=== PATIENT | female | born 1960 | race Caucasian/White ===

== ENCOUNTER 2025-09-06 09:27 | Outpatient (CLI) | payer BC ==
[2025-09-06 10:27] LABS: #Basophils 0.07 10x3/uL (0.0-0.2); #Eosinophils 0.15 10x3/uL (0.0-0.7); #Monocytes 0.55 10x3/uL (0.11-0.59); #Neutrophils 4.07 10x3/uL (1.40-6.50); %Basophils 1.0 % (0.0-1.0); %Eosinophils 2.2 % (0.0-10.0); %Lymphocytes 29.1 % (21.0-51.0); %Monocytes 8.0 % (0.0-10.0); %Neutrophils 59.4 % (42.0-75.0); Hematocrit 42.9 % (36.0-47.0); Hemoglobin 13.8 g/dL (12.0-16.0); Mean Corpuscular Hemoglobin 28.3 pg (27.0-31.0); Mean Corpuscular Volume 88.1 fL (78.0-98.0); Platelet Count 320 10x3/uL (130-400); Red Blood Cell (RBC) Count 4.87 mill/uL (4.20-5.40); White Blood Cell (WBC) Count 6.85 10x3/uL (4.8-10.8)
[2025-09-06 10:41] LABS: INR-International Normal Ratio 1.0; Prothrombin Time 12.8 sec (12.0-14.7)
[2025-09-06 10:53] LABS: ALT (SGPT) 14 U/L (Less than 34); AST (SGOT) 20 U/L (11-34); Albumin 4.0 g/dL (3.1-4.5); Alkaline Phosphatase 59 U/L (40-110); Anion Gap 12 mmol/L (10-20); BUN (Urea Nitrogen) 12 mg/dL (9.8-20.1); Bilirubin, Total 0.4 mg/dL (0.3-1.2); Calc. Creatinine Clearance 0 mL/min (70-130); Calcium 9.4 mg/dL (7.8-10.44); Carbon Dioxide 24 mmol/L (23-31); Chloride 107 mmol/L (98-107); Globulin 3.0 g/dL (2.4-3.5); Glucose 108 mg/dL (80-115); Potassium 4.3 mmol/L (3.5-5.1); Sodium 139 mmol/L (136-145)
== END 2025-09-06 09:28 | disposition home or self-care (01) ==
LOC: LABBT 09:27
PROVIDERS: ATTEND Orthopaedic Surgery
DX: Z01.818 Encounter for other preprocedural examination (principal); M19.011 Primary osteoarthritis, right shoulder
CPT/HCPCS: 80053; 85025; 85610; 87081; 93005; 93010

== ENCOUNTER 2025-09-13 05:45 | Day surgery (SDC) | payer BC ==
[2025-09-06 09:37] VITALS: BMI 28.3
[2025-09-13] MEDS ORDERED: Lidocaine 1% PF 5 ML VIAL ONE (06:27)
[2025-09-13] MEDS ORDERED: fentaNYL PF 100 MCG/2 ML SYRINGE ONE (06:27)
[2025-09-13] MEDS ORDERED: Ondansetron PF 4 MG/2 ML Vial ONE (06:27)
[2025-09-13] MEDS ORDERED: Rocuronium Bromide 10 MG/ML (10ML VIAL) ONE (06:27)
[2025-09-13] MEDS ORDERED: Tranexamic Acid 1,000 MG/10 ML VIAL ONE (06:33)
[2025-09-13] MEDS ORDERED: Vancomycin 1 GM/200 ML (FROZEN) BAG ONE (06:34)
[2025-09-13] MEDS ORDERED: Scopolamine 1 mg/72 hour Patch ONE (06:41)
[2025-09-13] MEDS ORDERED: CEFAZOLIN 2 GM VIAL ONE (07:01)
[2025-09-13] MEDS ORDERED: Lidocaine 2% 6 ML (Jelly) SYR ONE (07:19)
[2025-09-13] MEDS ORDERED: SUCCINYLCHOLINE/SOD CL,ISO/PF 200 MG/10 ML SYRINGE FS ONE (07:19)
[2025-09-13] MEDS ORDERED: Ropivacaine 2% HCl/PF (20 MG/10 ML VIAL) ONE (07:28)
[2025-09-13] MEDS ORDERED: PROPOFOL 200 MG/20 ML VIAL ONE (07:28)
[2025-09-13] MEDS ORDERED: Ropivacaine 0.5% HCl/PF (150 MG/30 ML VIAL) ONE (07:28)
[2025-09-13] MEDS ORDERED: Ropivacaine 0.2% 550 ML 550 ML NERVE BLCK SCH (07:30)
[2025-09-13] MEDS ORDERED: Ondansetron PF 4 MG/2 ML Vial IVP PRN (07:30)
[2025-09-13] MEDS ORDERED: HYDROcodone/Acetaminophen 10/325 mg Tablet PO PRN ×2 (07:30)
[2025-09-13] MEDS ORDERED: diphenhydrAMINE 50 MG/ML VIAL ONE (07:52)
[2025-09-13] MEDS ORDERED: PHENYLEPHRINE-NS 100 MCG/ML 10 ML SYRINGE ONE (08:10)
[2025-09-13] MEDS ORDERED: SUGAMMADEX SODIUM 200 MG/2 ML VIAL ONE (09:09)
[2025-09-13] MEDS ORDERED: Mometasone 200 MCG/Formoterol 5 MCG 120 PUFF INHALER INH PRN (15:45)
[2025-09-13] MEDS ORDERED: Bisacodyl 10 MG SUPP PR PRN (15:45)
[2025-09-13] MEDS ORDERED: Milk Of Magnesia 30 ML UDCUP PO PRN (15:45)
[2025-09-13] MEDS: Ketorolac Tromethamine 30 MG (1 mL) VIAL IVP SCH (18:11)
[2025-09-13] MEDS: Famotidine 20 MG TAB PO SCH (21:38)
[2025-09-14] MEDS: Acetaminophen 325 MG TAB PO PRN (04:18)
[2025-09-14] MEDS: metFORMIN 500 MG TAB PO SCH (08:52)
[2025-09-14] MEDS: Colestipol 1 GM TAB PO SCH (09:25)
[2025-09-14] MEDS: Minoxidil 2.5 MG TAB PO SCH (09:25)
[2025-09-14 11:50] VITALS: BP 127/73; TEMP 97.6
== END 2025-09-14 12:32 | disposition home or self-care (01) ==
LOC: SDC 05:45 → SURG B 10:16 → SDC 09-14 12:32
PROVIDERS: ATTEND Orthopaedic Surgery
PROC: 0LS30ZZ Reposition Right Upper Arm Tendon, Open Approach (ICD-10-PCS; principal; 2025-09-13)
PROC: 0RRJ00Z Replacement of Right Shoulder Joint with Reverse Ball and Socket Synthetic Substitute, Open Approach (ICD-10-PCS; principal; 2025-09-13)
PROC: 3E0T3BZ Introduction of Anesthetic Agent into Peripheral Nerves and Plexi, Percutaneous Approach (ICD-10-PCS; principal; 2025-09-13)
DX: M19.011 Primary osteoarthritis, right shoulder (principal); M75.21 Bicipital tendinitis, right shoulder; E78.00 Pure hypercholesterolemia, unspecified; E07.9 Disorder of thyroid, unspecified; J44.9 Chronic obstructive pulmonary disease, unspecified; Z96.652 Presence of left artificial knee joint; Z90.710 Acquired absence of both cervix and uterus; Z90.49 Acquired absence of other specified parts of digestive tract; Z79.890 Hormone replacement therapy; Z79.51 Long term (current) use of inhaled steroids; Z79.899 Other long term (current) drug therapy
CPT/HCPCS: A4306; C1713; C1776; J0169; J0665; J1100; J1200; J1885; J2250; J2405; J2704; J2795; J3373